=== PATIENT | female | born 1995 | race Caucasian/White ===

== ENCOUNTER 2016-06-11 15:47 | Emergency (ER) | payer OTHER ==
[~2016-06-11] VITALS: Ht 162.6 cm; Wt 58.1 kg
[2016-06-11 16:08] VITALS: BP 115/45
--- NOTE | 2016-06-11 16:38 | NUR ---
PT TO ER BED 7.
--- NOTE | 2016-06-11 16:52 | NUR ---
21/F presents to ED for evaluation of RLQ pain x 2 days. Patient was at her PMD's office prior to arrival for evaluation. Pt states "They checked my urine and she told me I had a lot of blood in it." Patient states "She sent me here to see if I have kidney stones or appendicitis." Patient c/o RLQ pain, sharp, non radiating, constant, 8/10 pain. Denies N/V/D. Denies fever or chills. Abdomen soft, tender to palpation to right lower quadrant. Active bowel sounds x 4 quadrants. Pt is AOX4, skin warm and dry, normal in color for ethnicity. VSS.
[2016-06-11] MEDS ORDERED: KETOROLAC 30 MG/ML VIAL IVP ONE (17:20)
--- NOTE | 2016-06-11 17:26 | NUR ---
Consent for CT signed by patient.
--- NOTE | 2016-06-11 18:06 | NUR ---
Lab called about hcg qual. Reports it is a weak positive. Dr. Jarquin made aware. Further orders to have HCG quantitative done. Lab called and advised them to add it on. CT made aware and will be notified if and when patient can be taken to CT. Pt updated on status at this time. Pt is calm and relaxed, continues to c/o 8/10 pain. No improvement with pain medication. Dr. Jarquin alexander aware.
--- NOTE | 2016-06-11 18:13 | NUR ---
Ultrasound at bedside.
--- NOTE | 2016-06-11 18:30 | NUR ---
Dr. Jarquin spoke with the patient about HCG quantitative value of 7 H. Pt states that even if she was she would not keep the baby either way and was okay with having the CT scan done.
--- NOTE | 2016-06-11 18:34 | NUR ---
Patient taken to CT via w/c.
--- NOTE | 2016-06-11 18:48 | NUR ---
Pt returned from CT via w/c.
[2016-06-11] MEDS ORDERED: fentaNYL 0.05 MG/ML VIAL IVP ONE (18:55)
--- NOTE | 2016-06-11 19:31 | NUR ---
Pt report given to Felicitas ANTOINE. Transfer of care at this time.
--- NOTE | 2016-06-11 19:59 | NUR ---
Dr. Felton evaluating patient at bedside.
--- NOTE | 2016-06-11 20:00 | NUR ---
ALL RESULTS BACK AND NOTED BY ERMD AND FOR D/C
[2016-06-11 20:14] VITALS: BP 110/74
== END 2016-06-11 20:14 | disposition home or self-care (01) ==
LOC: MED 15:47
DX: N83.291 Other ovarian cyst, right side (principal); Z88.0 Allergy status to penicillin
CPT/HCPCS: 36415; 74177; 76705; 80053; 81001; 81025; 83690; 84702; 84703; 85025; 96374; 96375; 99285; J1885; J3010; Q0092; Q9967

== ENCOUNTER 2016-12-07 15:02 | Emergency (ER) | payer OTHER ==
--- NOTE | 2016-12-07 15:48 | NUR ---
PATIENT WAS INFORMED THAT A CT WAS NECESSARY FOR DIAGNOSTIC PURPOSES AND WAS ADVISED THAT OUR IN HOUSE CT WAS DOWN AND GIVEN THE OPTION OF GOING TO ANOTHER FACILITY. THIS PERSON OPTED TO SEEK MEDICAL CARE ELSEWHERE.
== END 2016-12-07 15:48 | disposition left against medical advice (07) ==
LOC: MED 15:02
DX: Z53.21 Procedure and treatment not carried out due to patient leaving prior to being seen by health care provider (principal)

== ENCOUNTER 2016-12-26 12:03 | Emergency (ER) | payer OTHER ==
[~2016-12-26] VITALS: Ht 165.1 cm; Wt 51.7 kg
[2016-12-26 12:15] VITALS: BP 119/85
--- NOTE | 2016-12-26 12:57 | NUR ---
PATIENT AMBULATED TO BED 7.
--- NOTE | 2016-12-26 13:05 | NUR ---
21F BIB SELF C/O LEFT SUPRAPUBIC PAIN, DULL, NON-RADIATING, 4/10 X 6 DAYS; PT C/O URINARY FREQUENCY AND URGENCY, BUT STATES NO PAIN ON URINATION AT THIS TIME; PT STATES NO N/V/D AT THIS TIME; ABDOMEN SOFT, NON-TENDER, ACTIVE BOWEL SOUNDS X 4 QUADRANTS; PT AA&OX4, PERRLA, BL LUNG SOUNDS CLEAR, RR EVEN/UNLABORED, SKIN IS WARM/DRY/INTACT AT THIS TIME; STEADY GAIT; HX: RT SUPRAPUBIC CYST; PT RESTING IN BED WITH HOB ELEVATED AND IN LOWEST POSITION; POSITIONED FOR COMFORT; ER MD MADE AWARE OF STATUS. WILL CONTINUE TO MONITOR.
[2016-12-26 14:18] VITALS: BP 103/64
--- NOTE | 2016-12-26 14:18 | NUR ---
Patient discharged with v/s stable. Written and verbal after care instructions given and explained. Patient alert, oriented and verbalized understanding of instructions. Ambulatory with steady gait. All questions addressed prior to discharge. ID band removed. Patient advised to follow up with PMD. Rx of Dillwyn and Cipro given. Patient educated on indication of medication including possible reaction and side effects. Opportunity to ask questions provided and answered.
== END 2016-12-26 14:18 | disposition home or self-care (01) ==
LOC: MED 12:03
DX: N39.0 Urinary tract infection, site not specified (principal); F17.210 Nicotine dependence, cigarettes, uncomplicated; Z88.0 Allergy status to penicillin; Z88.1 Allergy status to other antibiotic agents
CPT/HCPCS: 81002; 81025; 99283

== ENCOUNTER 2017-05-22 09:30 | Emergency (ER) | payer OTHER ==
[~2017-05-22] VITALS: Ht 162.6 cm; Wt 50.8 kg
[2017-05-22 09:52] VITALS: BP 126/61
--- NOTE | 2017-05-22 10:33 | NUR ---
Pt ambulated to bed 12.
--- NOTE | 2017-05-22 10:40 | NUR ---
patient is a 22 year-old female brought in via private vehicle for abdominal pain x 5 days. patient states " I think it's my ovarian cyst that's acting up. " patient is alert and oriented x 4. respirations are even and unlabored. no cough or dyspnea observed. patient denies any fever, chills, n,v,d. skin is w,d,i. patient describes abdominal pain as dull 6/10, however, when she is active pain described as sharp. awaitng md evalution.
[2017-05-22] MEDS ORDERED: IBUPROFEN 600 MG TAB PO ONE (11:15)
[2017-05-22 11:33] LABS: BILIRUBIN,URINE NEGATIVE (NEGATIVE); BLOOD, URINE 2+ (NEGATIVE); COLOR,URINE YELLOW (YELLOW); LEUKOCYTE ESTERASE ,URINE TRACE (NEGATIVE); NITRITE, URINE NEGATIVE (NEGATIVE); UGLUCOSE NEGATIVE (NEGATIVE)
[2017-05-22 11:34] LABS: APPEARANCE,URINE HAZY (CLEAR)
--- NOTE | 2017-05-22 11:37 | NUR ---
Ultrasound at bedside.
[2017-05-22 11:42] LABS: RBC,URINE 3-10 (FEW) /HPF (0-5)
[2017-05-22 13:29] VITALS: BP 117/67
--- NOTE | 2017-05-22 13:29 | NUR ---
Patient discharged with v/s stable. Written and verbal after care instructions given and explained. Patient alert, oriented and verbalized understanding of instructions. Ambulatory with steady gait. US report provided to patient. Pt expressed she did not want to take the prescription because it's an arthritis medication and it has a lot of side effects. All questions addressed prior to discharge. ID band removed. Patient advised to follow up with PMD. Rx of Voltaren XR 100mg was refused by the patient. Opportunity to ask questions provided and answered.
== END 2017-05-22 13:29 | disposition home or self-care (01) ==
LOC: MED 09:30
DX: R10.30 Lower abdominal pain, unspecified (principal); Z88.0 Allergy status to penicillin; Z88.1 Allergy status to other antibiotic agents
CPT/HCPCS: 76830; 81001; 81025; 87086; 99285; Q0092

== ENCOUNTER 2019-02-23 11:26 | Emergency (ER) | payer OTHER ==
[~2019-02-23] VITALS: Ht 162.6 cm; Wt 61.2 kg
[2019-02-23 11:36] VITALS: BP 131/82
--- NOTE | 2019-02-23 11:37 | NUR ---
23 Y/O FEMALE PRESENTED WITH C/C OF LEFT LOWER FLANK PAIN, BURNING 7/10 X 3 DAYS. PT DENIES ABD PAIN, N/V/D. PER PT NO NKA. NO MEDICAL HX. NO MEDIS ON REG BASIS. LAST ORAL INTAKE YESTERDAY TOLERATED WELL. FIANCE AT BEDSIDE. SIDE RAIL X1.
--- NOTE | 2019-02-23 11:42 | NUR ---
Patient ambulated to bed 12. RN evaluating patient at bedside.
[2019-02-23] MEDS ORDERED: HYDROcodone/APAP 5/325 MG 1 TAB TAB PO ONE (12:55)
[2019-02-23] MEDS ORDERED: KETOROLAC 30 MG/ML VIAL IM ONE (12:55)
--- NOTE | 2019-02-23 13:44 | NUR ---
Patient appears to be resting comfortably in bed speaking with fiance. Vital Signs within normal limits. Respirations even and unlabored. Will continue to monitor.
--- NOTE | 2019-02-23 14:09 | NUR ---
Patient discharged with v/s stable. Written and verbal after care instructions given and explained. Patient alert, oriented and verbalized understanding of instructions. Ambulatory with steady gait. All questions addressed prior to discharge. ID band removed. Patient advised to follow up with PMD. Rx of IBUPROFEN AND NORCO given. Patient educated on indication of medication including possible reaction and side effects. Opportunity to ask questions provided and answered.
[2019-02-23 14:10] VITALS: BP 115/75
== END 2019-02-23 14:09 | disposition home or self-care (01) ==
LOC: MED 11:26
DX: R10.9 Unspecified abdominal pain (principal)
CPT/HCPCS: 76770; 81025; 96372; 99284; J1885; Q0092

== ENCOUNTER 2021-03-20 09:55 | Emergency (ER) | payer OTHER ==
[~2021-03-20] VITALS: Ht 162.6 cm; Wt 82.3 kg
[2021-03-20 10:02] VITALS: BP 141/95
--- NOTE | 2021-03-20 10:09 | NUR ---
LOBBY Addendum: 03/20/21 at 1037 by [facility] HANDED ON URINE CUP.
--- NOTE | 2021-03-20 10:10 | NUR ---
BIB SELF C/O LEFT CHEST TIGHNESS, LEFT ARM PAIN, VOMITING , EPIGASTRIC PAIN X TODAY, COUGH X YESTERDAY. PMH: DEPRESSION
--- NOTE | 2021-03-20 10:27 | NUR ---
EKG AT TRIAGE ROOM.
[2021-03-20 11:13] LABS: BASOPHILS % (AUTO) 0.1 % (0.0-2.0); EOSINOPHILS # (AUTO) 0.2 K/uL (0-0.4); EOSINOPHILS % (AUTO) 1.9 % (0.0-4.0); HEMATOCRIT 41.6 % (36-48); HEMOGLOBIN 13.9 g/dL (12.0-16.0); LYMPHOCYTES # (AUTO) 1.5 K/uL (2.5-16.5); LYMPHOCYTES % (AUTO) 18.1 % (20.5-51.1); MEAN CORPUSCULAR HEMOGLOBIN 28 pg (27-31); MEAN CORPUSCULAR HGB CONC 33 g/dL (33-37); MEAN CORPUSCULAR VOLUME 82.5 fL (80-94); MONOCYTES # (AUTO) 0.5 K/uL (0.8-1.0); MONOCYTES % (AUTO) 5.6 % (1.7-9.3); NEUTROPHILS # (AUTO) 6.2 K/uL (1.8-7.7); NEUTROPHILS % (AUTO) 74.3 % (42.2-75.2); PLATELET COUNT (AUTO) 423 K/uL (140-450); RED BLOOD CELL COUNT(AUTO) 5.05 MIL/uL (4.20-5.40); RED CELL DISTRIBUTION WIDTH 14.3 % (11.6-13.7); WHITE BLOOD COUNT (AUTO) 8.4 K/uL (4.8-10.8)
[2021-03-20 11:45] LABS: ALBUMIN 3.8 g/dL (3.4-5.0); ANION GAP 15.2 (8-16); CARBON DIOXIDE 21.6 mmol/L (21-32); CREATININE 0.8 mg/dL (0.6-1.3); POTASSIUM 3.8 mmol/L (3.5-5.1); THYROID STIMULATING HORMONE 4.93 uIU/mL (0.34-3.74); TOTAL BILIRUBIN 0.9 mg/dL (0.0-1.0)
[2021-03-20] MEDS ORDERED: LORazepam 0.5 MG TAB PO ONE (12:10)
--- NOTE | 2021-03-20 13:05 | NUR ---
Patient discharged with v/s stable. Written and verbal after care instructions given and explained. Patient verbalized understanding. Ambulatory with steady gait. All questions addressed prior to discharge. Advised to follow up with PMD.
--- NOTE | 2021-03-20 19:27 | NUR ---
Note neema in EDM - 03/20/21 at 1928 by [facility] BIB SELF C/O LEFT CHEST TIGHNESS, LEFT ARM PAIN, VOMITING , EPIGASTRIC PAIN X TODAY, COUGH X YESTERDAY. PMH: DEPRESSION
== END 2021-03-20 13:44 | disposition home or self-care (01) ==
LOC: MED 09:55
DX: R94.6 Abnormal results of thyroid function studies (principal); F41.9 Anxiety disorder, unspecified; F31.9 Bipolar disorder, unspecified; Z88.0 Allergy status to penicillin; Z88.1 Allergy status to other antibiotic agents; Z20.822 Contact with and (suspected) exposure to COVID-19
CPT/HCPCS: 36415; 71045; 80053; 81002; 81025; 83690; 84443; 84484; 85025; 93005; 99285